=== PATIENT | male | born 1945 | race Asian ===

== ENCOUNTER → 2016-11-04 | Outpatient (CLI) | payer OTHER ==
[~2016-11-04] MED LIST: GADOBUTROL 10 ML VIAL IVP ONE
== END ==
LOC: FIMAGING 06:43
PROVIDERS: ATTEND Family Medicine
DX: G93.0 Cerebral cysts (principal); G31.9 Degenerative disease of nervous system, unspecified
CPT/HCPCS: 70553; A9585

== ENCOUNTER → 2016-11-23 | Outpatient (CLI) | payer OTHER | LOC: FIMAGING 14:47 | PROVIDERS: ATTEND Psychiatry & Neurology Neurology | DX: E04.1 Nontoxic single thyroid nodule (principal); M50.30 Other cervical disc degeneration, unspecified cervical region; M99.71 Connective tissue and disc stenosis of intervertebral foramina of cervical region ==